=== PATIENT | female | born 1980 | race African-American/Black ===

== ENCOUNTER 2025-05-17 09:30 | Emergency (ER) | payer OTHER, MEDICAID, SELFPAY ==
--- NOTE | ~2025-05-17 | XR_ITS ---
EXAMINATION: XR LUMBOSACRAL SPINE CLINICAL INFORMATION: fall COMPARISON: None available. TECHNIQUE: Three views of the lumbosacral spine. FINDINGS: 5 lumbar type vertebral bodies. Vertebral body heights are maintained. No evidence of acute fracture or spondylolisthesis. Disc spaces are maintained. Small anterior endplate spurring at L4 and L5. Bilateral SI joints are symmetric. Intact symphysis pubis. No acute fracture is identified in the visualized pelvis. No suspicious lytic or blastic lesions. No abnormal soft tissue calcification. XR/XR lumbar spine 2-3V IMPRESSION: No radiographic evidence of acute fracture or spondylolisthesis. Electronically signed by: Angel Luis Juarez MD 05/17/2025 10:23 AM EDT
--- NOTE | ~2025-05-17 | XR_ITS ---
EXAMINATION: XR RIBS, LEFT CLINICAL INFORMATION: pain, fall COMPARISON: None available. TECHNIQUE: 3 views of the left ribs were obtained. FINDINGS: Lungs are clear. No consolidation, pneumothorax, or pleural effusion. The cardiomediastinal silhouette and pulmonary vasculature are normal. Osseous structures are unremarkable. Ribs appear intact. No fractures are identified. XR/XR ribs LT min 3V w CXR1V IMPRESSION: 1. The lungs are clear. No active pulmonary disease. 2. No definite rib fracture identified. Electronically signed by: Kaleb Kelly MD 05/17/2025 10:24 AM EDT
[2025-05-17 09:47] VITALS: BP 128/86; PULSE 106; RESP 16; TEMP 37; O2SAT 96; BMI 29.1
--- NOTE | 2025-05-17 10:10 | ED.FALL ---
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 She hit her L ribs on the ground. No LOC, no headstrike, no neck pain. No other injuries noted. It hurts to move, touch, breathe on that side. She was able to get up. 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) Fall from: standing Fall witnessed: yes, by bystander Place fall occurred: other Loss of consciousness: none Prolonged down time: no Symptoms prior to fall: none Context: tripped/slipped Location of injury: chest and back Severity: moderate Quality: aching Associated symptoms (after fall): denies Related Data Previous Rx's ?Medication ?Instructions ?Recorded cyclobenzaprine 10 mg tablet 10 mg PO TID PRN muscle spasm #20 05/17/25 tabs ibuprofen 600 mg tablet 600 mg PO Q6H PRN pain #30 tabs 05/17/25 lidocaine 5 % topical patch 1 patch topical DAILY #30 ea 05/17/25 Allergies Allergy/AdvReac Type Severity Reaction Status Date / Time No Known Allergies Allergy Verified 05/17/25 09:53 Review of Systems Review of Systems: Constitutional : No Fever, No Chills Cardiovascular : No Chest Pain, No SOB Respiratory : No Cough, No Dyspnea Gastrointestinal : No Nausea, No Vomiting, No Diarrhea, No abdominal Pain Musculoskeletal : positive rib pain, No Myalgias, No Joint Swelling Skin : No Skin lacerations, No rash Neuro : No Weakness, No Numbness, No Loss of Consciousness, No Dizziness, No Headache All other systems reviewed and are negative [facility] Past Medical History Attestation statement: The following information was validated with the patient. Source: old records reviewed Medical History No pertinent past medical history Social History Social History (Updated 05/17/25 @ 10:17 by Lora Mackey DO) Patient Tobacco Use Status: Tobacco use Unknown Physical Exam Vital Signs: Vital Signs: Last Vital Signs Temp 98.6 F 10/20/25 09:47 Pulse 106 H 05/17/25 09:47 Resp 16 05/17/25 09:47 BP 128/86 05/17/25 09:47 Pulse Ox 96 05/17/25 09:47 O2 Del Method Room Air 05/17/25 09:47 BMI result Body Mass Index 29.1 Appearance: Alert. Oriented X3. No acute distress. Eyes: Pupils equal, round and reactive to light. ENT: Pharynx normal. atraumatic Neck: Normal inspection. Neck supple. CVS: Normal heart rate and rhythm. Pulses normal. Respiratory: No respiratory distress. Breath sounds normal. Chest: left rib posteriolateral ttp but no crepitus or deformity felt Abdomen: Soft and nontender. Back: L paraspinal thoracic and lumbar mild ttp no midline Skin: Skin warm and dry. Normal skin color. Extremities: No lower extremity edema. Neuro: Oriented X 3. No motor deficit. No sensory deficit. CN2-12 intact Medical Decision Making Medical Decision Making MDM Narrative: 45 yo female healthy here with c/o mechanical trip and fall no headstrike, no LOC, no neck pain - has pain to L rib and back area - at this time xrays of ribs and lumbar spine. No other injury noted. Differential Diagnosis Differential Diagnoses: The differential diagnosis associated with the presentation includes strain, sprain, contusion, fracture, low susp for PTX Admission/Observation Consideration of admission/observation: Escalation of care including admission/observation considered work up reassuring, GCS 15, stable for DC Independent Interpretation I performed an independent interpretation of an: Plain X-Ray (no trauma) Radiology Impression Discussion of test interpretation with radiology: I have reviewed the radiologist's reading. Prescription Management I considered prescription management with: Pain Medication and Other Discharge Plan Discharge Clinical Impression: Contusion of rib on left side Patient Disposition: Home, Self-Care Instructions: Rib Contusion (ED) Additional Instructions: no broken bones on xray return for worsening pain, trouble breathing, cough with bloody sputum, or any other concerns limit lifting to 10lbs for 2 weeks Prescriptions: New cyclobenzaprine 10 mg tablet 10 mg PO TID PRN (Reason: muscle spasm) Qty: 20 0RF lidocaine 5 % adhesive patch,medicated 1 patch topical DAILY Qty: 30 0RF Rx Instructions: leave on most painful area for up to 12 hrs ibuprofen 600 mg tablet 600 mg PO Q6H PRN (Reason: pain) Qty: 30 0RF Stand Alone Forms: Work/School Release Print Language: Occitan
[2025-05-17 11:04] VITALS: BP 128/86; PULSE 106; RESP 16; TEMP 37; O2SAT 96
--- OUTSIDE RECORDS SUMMARY | 2025-05-17 13:01 | XMS_ITS | Clinical Summary ---
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 Name Role Phone Unavailable Primary Care Provider Unavailabl e Encounters Date Type Department Care Team Description 02/16/2025 Population Health Risk Score [facility] ([facility]) Department [address] [address] Provider, Population Health Generic from Last 3 Months Immunizations Immunization Administration Dates Next Due Pfizer Covid-19 Vaccine 12+ 12/17/2020, Pfizer Covid-19 Vaccine 12+ Bivalent 08/06/2022 Social History Tobacco Use Types Packs/Day Years Used Date Smoking Tobacco: Never Assessed Comments Unknown Sex and Gender Information Value Date Recorded Sex Assigned at Not on file Legal Sex Female 10:16 AM EST Gender Identity Not on file Sexual Orientation Not on file Plan of Treatment Health Maintenance Due Date Last Done Comments Depression Screening 1981 SDOH Screening 1981 Disability Screening 1981 Alcohol/Substance Use Screening 1993 Tobacco Screening 1993 Family Planning (PISQ) 1996 Hepatitis C Screening 1999 Hepatitis B Vaccines (1 of 3 - 19+ 3-dose series) 2000 Pap Smear 2002 Cervical Cancer Screening 2011 HPV/Cotest 2011 Mammogram 2021 DTaP/Tdap/Td Vaccines (1 - Tdap) 08/31/2021 08/30/2021 HPV Vaccines (2 - 3-dose series) 05/02/2023 04/04/2023 COVID-19 Vaccine ( - 2024- season) 2025 08/06/2022, 07/06/2021, 12/17/2020, Additional history exists Influenza Vaccine (#1) 2025 Zoster Vaccines (1 of 2) 2031 RSV Patients and Patients Aged 60 years or older (1 - 1-dose 75+ series) 2056 HIV Screening Completed 01/08/2025, 01/08/2025 HIB Vaccines Aged Out No longer eligi ble based on patient's age to complete this topic Hepatitis A Vaccines Aged Out No long er eligible based on patient's age to complete this topic IPV Vaccines Aged Out No longer eligi ble based on patient's age to complete this topic Meningococcal B Vaccine Aged Out No l onger eligible based on patient's age to complete this topic Meningococcal Vaccine Aged Out No zoe sangeeta eligible based on patient's age to complete this topic Pneumococcal Vaccine: Pediatrics (0 to 5 Years) and At-Risk Patients (6 to 49) Years Aged Out No longer eligible based on patient's age to complete this topic RSV under 20 months Aged Out No longe r eligible based on patient's age to complete this topic Rotavirus Vaccines Aged Out No longer eligible based on patient's age to complete this topic Insurance MEDICAID , [address] [place] [id number]
--- OUTSIDE RECORDS SUMMARY | 2025-05-17 13:01 | XMS_ITS | Clinical Summary ---
Author Organization [facility] Address [address] [place] [address] Care Team Providers Care Assault Amphibious Vehicle Officer Name Role Phone Andre Flowers NP Primary Care Provider [phone] Immunizations Immunization Administration Dates Next Due Pfizer SARS-CoV-2 COVID-19, mRNA, LNP-S, preservative free 07/06/2021 Surgical History Surgery Date Site/Laterality Comments SECTION PROCEDURE: [facility] DELIVERY ONLY BREAST SURGERY PROCEDURE: [facility] BREAST AUGMENTATION WITH IMPLANT Medical History Medical History Date Comments Migraine DX:Migraine Umbilical hernia DX:Umbilical he rnia Social History Tobacco Use Types Packs/Day Years Used Date Smoking Tobacco: Never Smokeless Tobacco: Never Alcohol Use Standard Drinks/Week Comments Yes 0 (1 standard drink = 0.6 oz pur e alcohol) Comments Unknown Sex and Gender Information Value Date Recorded Sex Assigned at Not on file Legal Sex Female 6:00 PM EST Gender Identity Not on file Sexual Orientation Not on file Obstetrics History Last Filed Vital Signs Vital Sign Reading Time Taken Comments Blood Pressure - - Pulse 89 05/05/2024 12:57 PM EDT Temperature - - Respiratory Rate - - Oxygen Saturation - - Inhaled Oxygen Concentration - - Weight 67.6 kg (149 lb) 05/05/2024 12:57 PM EDT Height 152.4 cm (5') 05/05/2024 12:57 PM EDT Body Mass Index 29.1 05/05/2024 12:57 PM EDT Plan of Treatment Health Maintenance Due Date Last Done Comments Breast Cancer Screening 1981 Hepatitis B Vaccines (1 of 3 - 19+ 3-dose series) 2000 Cervical Cancer Screening: Pap Smear 2002 HPV Vaccines (2 - 3-dose SCDM series) 05/02/2023 04/04/2023 HIV Screening 05/14/2024 Hepatitis C Screening 05/14/2024 Social Influencers of Health Screening 05/14/2024 Depression Screening 07/29/2024 COVID-19 Vaccine ( season) 2025 08/06/2022, 07/06/2021, 12/17/2020, Additional history exists Influenza Vaccine (#1) 2025 DTaP,Tdap,and Td Vaccines (2 - Td or Tdap) 08/30/2031 08/30/2021 RSV Immunization Adult Patients (1 - 1-dose 75+ series) 2056 HIB Vaccines Aged Out No longer eligi ble based on patient's age to complete this topic Hepatitis A Vaccines Aged Out No long er eligible based on patient's age to complete this topic IPV Vaccines Aged Out No longer eligi ble based on patient's age to complete this topic MMR Vaccines Aged Out No longer eligi ble based on patient's age to complete this topic Meningococcal ACWY Vaccine Aged Out N o longer eligible based on patient's age to complete this topic Meningococcal B Vaccine Aged Out No l onger eligible based on patient's age to complete this topic Pneumococcal Vaccine: Pediatrics (0 to 5 Years) and At-Risk Patients (6 to 49 Years) Aged Out No longer eligible based on patient's age to complete this topic RSV Immunization Patients Under 20 months Aged Out No longer eligible based on patient's age to complete this topic Varicella Vaccines Aged Out No longer eligible based on patient's age to complete this topic Care Teams Assault Amphibious Vehicle Officer Relationship Specialty Start Date End Date Andre Flowers NP PCP - General 03/26/24
== END 2025-05-17 11:05 | disposition home or self-care (01) ==
LOC: HO.ED 10:48
PROVIDERS: Emergency Provider Emergency Medicine
DX: S20.212A Contusion of left front wall of thorax, initial encounter (principal); W01.0XXA Fall on same level from slipping, tripping and stumbling without subsequent striking against object, initial encounter; Y93.89 Activity, other specified; Y92.480 Sidewalk as the place of occurrence of the external cause; Y99.8 Other external cause status
CPT/HCPCS: 71101; 72100; 99283

== ENCOUNTER → 2025-05-17 09:54 | Outpatient (BNV) | payer OTHER, SELFPAY | PROVIDERS: Emergency Provider Emergency Medicine; Visit Provider Radiology Diagnostic Ultrasound | DX: R07.89 Other chest pain (principal); W19.XXXA Unspecified fall, initial encounter; Z04.3 Encounter for examination and observation following other accident | CPT/HCPCS: 71101; 72100 ==